=== PATIENT | female | born 1965 | race Caucasian/White ===

== ENCOUNTER 2017-02-19 16:59 | Emergency (ER) | payer OTHER ==
--- NOTE | 2017-02-19 19:56 | DIAGNOSTIC IMAGING REPORT ---
PROCEDURE: CT ABD/PELVIS WITH CONTRAST INDICATION: Abdominal pain at incision site. When based post ventral abdominal hernia repair. TECHNIQUE: 110 ml of Isovue 300 were injected intravenously and axial images were obtained of the entire abdomen and pelvis with sagittal and coronal reformations. COMPARISON: None. FINDINGS: ABDOMEN: There are postoperative changes and soft tissue edema of the upper periumbilical abdominal wall . There are surgical mesh in the intra-abdominal at the surgical site. There is no evidence of fluid collection or abscess. Cholecystectomy (surgical clips). Liver, spleen, pancreas, kidneys, and aorta are normal. There is moderate stool throughout the colon. Small bowel pattern and appendix are normal. PELVIS: There is a small amount of free fluid in the pelvis (most likely postoperative fluid). Uterus and adnexal structures are normal. IMPRESSION: 1. Postoperative changes of the ventral abdominal wall consistent with hernia repair. No evidence of fluid collection or abscess. 2. Status post cholecystectomy. 3. Moderate stool throughout the colon. Consider obstipation. 4. Small amount of free fluid in the pelvis (most likely postoperative fluid). 5. Findings discussed with GET [place]. All CT scans at this facility use dose modulation, iterative reconstruction, and/or weight-based dosing when appropriate to reduce radiation dose to as low as reasonably achievable.
--- NOTE | 2017-02-19 20:56 | ED NURSING NOTES ---
Clinical Report - Nurses [place] [address] [place] [address] 02/19/2017 16:59 Patient: SEVEN PISANO TRIAGE Triage time 17:47 Feb 19 2017. Acuity: LEVEL 4. Chief Complaint: ABDOMINAL PAIN. 17:51 02/19/17. Alert. No acute distress. ( Pain is constant). SEPSIS SCREEN: Sepsis Screen. Negative (no infection suspected/documented). LYNN COMA SCORE: [place] Coma Scale: 15- eyes open spontaneously (4); best verbal response- oriented x 4 (5); best motor response- obeys commands (6). --17:51 Theresa Murphy 17:51 02/19/17. BP: 106/69. HR: 65. RR: 17. O2 saturation: 98%. Temp: 98.2 F. Pain level now 8/10. --17:51 Theresa Murphy. Weight: 58 kg stated. Height/Length: 63 inches Per Patient. BMI: 22.7. --17:48 Theresa Murphy. Medications Paxil Oral 50 mg, daily. --17:49 Theresa Murphy TraZODone HCl Oral (Tablet 150 mg), at bedtime. --17:49 Theresa Murphy OxyCODONE HCl Oral 10 mg, 6xdaily (They rx'd 1 at a time, pt states she has been taking 2). --17:50 Theresa Murphy Tylenol Oral, PRN. --17:50 Theresa Murphy. Medication/allergy information source: the patient. --17:51 Theresa Murphy. Allergies No Known Drug Allergy. --17:50 Theresa Murphy. History Arrived by private vehicle. Historian: patient. Accompanied by spouse. Primary physician (Herbert. Regan at [facility] was surgeon). This started yesterday. ( Pt reports that she had a hernia repair yesterday morning. She was given tylenol and oxycodone for pain, however she can't sleep or get control of the pain.). She has had constipation and abdominal pain. No nausea, vomiting, diarrhea or fever. PAST MEDICAL HX: Immunizations: up-to-date. Last normal menstrual period now. SOCIAL HX: Never smoker. No alcohol use or drug use. FALL RISK ASSESSMENT: Fall risk assessment completed. No fall risk identified. NUTRITIONAL RISK ASSESSMENT: The nutritional risk assessment revealed no deficiencies. FUNCTIONAL ASSESSMENT: Functional assessment: no impairments noted. LEARNING NEEDS ASSESSMENT: The learning needs assessment revealed no barriers. SKIN INTEGRITY ASSESSMENT: Skin integrity risk assessment completed. No skin integrity risk identified. --17:51 Theresa Murphy. PROBLEMS: Prior Injury, Same Area. Sprain. Right shoulder pain. Abdominal Pain. Depression. --17:50 Theresa Murphy. ADDITIONAL SURGERIES: . Gallbladder Surgery. Hernia Repair. --17:50 Theresa Murphy. Assessment The patient states feels the same. --17:51 Theresa Murphy. Interventions ID band on patient. --17:51 Theresa Murphy. PHYSICAL ASSESSMENT 17:51 02/19/17. Ambulatory to room. Patient gowned. GENERAL / NEURO / PSYCH: Alert. Oriented X 4. Appears in pain. HEENT: Mucous membranes are pink. RESPIRATORY: Respirations not labored. CVS: Capillary refill less than 2 seconds. GI / : Abdominal tenderness in the periumbilical area. Guarding present. SKIN: Skin is warm and dry. --17:51 Theresa Murphy. NURSING PROGRESS NOTES 17:51 02/19/17. The plan of care for this patient has been created. Patient gowned. Head of bed elevated. Reassurance given. Two patient identifiers checked. Call light placed in reach. Side rails up x 1. Bed placed in lowest position. Brakes of bed on. Patient ready for evaluation- chart flagged and ED physician and SOCIAL SECURITY SPECIALIST notified. --17:51 Theresa Murphy 17:52 02/19/17. ( [place] provided to pt.). --17:52 Theresa Murphy 18:45 02/19/2017 Site #1 started via IV in the right antecubital space with an 20g angiocath, with aseptic technique and good blood return; one attempt. Blood drawn: rainbow set. Labeled in the presence of the patient and sent to the lab. Saline lock flushed with 10 mL saline. --18:45 Theresa Murphy 19:00 02/19/2017 Started bag #1 1000 mL IV Fluids IV NS (Saline); at 1000 mL/hr over 1 hour(s) via site #1 via IV pump. Allergies verified and confirmed 5 rights. IV patency established. IV site checked: no pain, redness, or swelling. IV flushed thoroughly pre- and post-medication administration. --19:03 Theresa Murphy 19:02/19/2017 Toradol IVP 30 mg given over 1 minute(s) via site #1. Allergies verified and confirmed 5 rights. IV patency established. IV site checked: no pain, redness, or swelling. IV flushed thoroughly pre- and post-medication administration. IVP given by RN. --19:03 Theresa Murphy 19:04 02/19/17. BP: 113/69. HR: 52. RR: 15. O2 saturation: 99% on room air. Pain level now: 03/11. --19:04 Theresa Murphy 21:02/19/2017 IV Saline Lock Drip IV Discontinued: discontinued upon discharge. Total amount infused: 10 mL. IV patency established. IV site checked: no pain, redness, or swelling. IV flushed thoroughly. --21:06 Ryan Lion R.N. 21:02 02/19/2017 IV Fluids IV NS Discontinued: bag #1 infused upon discharge. Total amount infused: 1000 mL. IV patency established. IV site checked: no pain, redness, or swelling. IV flushed thoroughly. --21:07 Ryan Lion R.N. 21:06 02/19/2017 Site #1 removed upon discharge. Manual pressure applied. --21:06 Ryan Lion R.N. DISPOSITION / DISCHARGE Condition at departure: improved. No learning barriers present. Discharge instructions provided and reviewed with the patient. Reviewed referral to a primary care physician for followup. Patient verbalized understanding. Written instructions provided in Kazakh. The patient was discharged home and accompanied by spouse. She left the Emergency Department ambulatory and via private vehicle. Spouse driving. --21:05 Ryan Lion R.N. 21:05 02/19/17. BP: 110/69. HR: 78. RR: 16. O2 saturation: 100%. Temp: 98.3 F. --21:05 Ryan Lion R.N. Departure time: 21:07. --21:08 Ryan Lion R.N. Locked/Released at 02/19/2017 21:10 by Ryan Lion R.N.
--- NOTE | 2017-02-19 20:56 | ED ORDER SUMMARY ---
..... Patient: SEVEN PISANO OrderSheet [facility] VisitID: [id number] [place] [address] 51y, F Registration Date/Time: 02/19/2017 ORDER SHEET Weight: 58.0 kg (stated) Allergies: No Known Drug Allergy GENERAL ORDERS: CT Abd/Pel w Cont (No) (pending) (post op hernia repair yesterday) Urgent (18:35 02/19/2017 HBivens A.R.N.P.) (Ack 18:36 PWeiler ER Tech1) (Cancelled: CT [id number] CHagerty ER Environmental Services Supervisor) CBC w Diff Urgent (18:35 02/19/2017 HBivens A.R.N.P.) (Ack 18:36 PWeiler ER Tech1) (18:45 ASchmuck) CMP Urgent (18:35 02/19/2017 HBivens A.R.N.P.) (Ack 18:36 PWeiler ER Tech1) (18:45 ASchmuck) Amylase Urgent (18:35 02/19/2017 HBivens A.R.N.P.) (Ack 18:36 PWeiler ER Tech1) (18:45 ASchmuck) Lipase Urgent (18:35 02/19/2017 HBivens A.R.N.P.) (Ack 18:36 PWeiler ER Tech1) (18:45 ASchmuck) CT Abd/Pel w Cont (No) (N/A) Urgent (19:23 02/19/2017 CHagerty ER Environmental Services Supervisor written order HBivens A.R.N.P.) (Ack 19:24 CHagerty ER Environmental Services Supervisor) (19:41 [place]) MEDICATION ORDERS: IV FLUIDS: IV NS : initial bolus 1000 mL (1000 mL/hr), then none - (NOW) (18:35 02/19/2017 HBivens A.R.N.P.) (Ack 18:53 ASchmuck) (19:03 ASchmuck) Toradol IV 30 mg (NOW) (18:35 02/19/2017 HBivens A.R.N.P.) (Ack 18:53 ASchmuck) (19:03 ASchmuck) IV Saline Lock (18:35 02/19/2017 Doug A.R.N.P.) (18:45 ASchmuck) ORDER SHEET NOTES: [Electronically signed by Ryan Lion R.N. (21:10 02/19/2017)] [Electronically signed by Carolin SnowR.N.PAlbino (22:26 02/19/2017)] [Electronically locked/signed by Ryan Lion R.N. (21:10 02/19/2017)]
--- NOTE | 2017-02-19 20:56 | ED NURSING NOTES ---
Clinical Report - Nurses [place] [address] [place] [address] 02/19/2017 16:59 Patient: SEVEN PISANO TRIAGE Triage time 17:47 Feb 19 2017. Acuity: LEVEL 4. Chief Complaint: ABDOMINAL PAIN. 17:51 02/19/17. Alert. No acute distress. ( Pain is constant). SEPSIS SCREEN: Sepsis Screen. Negative (no infection suspected/documented). LYNN COMA SCORE: [place] Coma Scale: 15- eyes open spontaneously (4); best verbal response- oriented x 4 (5); best motor response- obeys commands (6). --17:51 Theresa Murphy 17:51 02/19/17. BP: 106/69. HR: 65. RR: 17. O2 saturation: 98%. Temp: 98.2 F. Pain level now 8/10. --17:51 Theresa Murphy. Weight: 58 kg stated. Height/Length: 63 inches Per Patient. BMI: 22.7. --17:48 Theresa Murphy. Medications Paxil Oral 50 mg, daily. --17:49 Theresa Murphy TraZODone HCl Oral (Tablet 150 mg), at bedtime. --17:49 Theresa Murphy OxyCODONE HCl Oral 10 mg, 6xdaily (They rx'd 1 at a time, pt states she has been taking 2). --17:50 Theresa Murphy Tylenol Oral, PRN. --17:50 Theresa Murphy. Medication/allergy information source: the patient. --17:51 Theresa Murphy. Allergies No Known Drug Allergy. --17:50 Theresa Murphy. History Arrived by private vehicle. Historian: patient. Accompanied by spouse. Primary physician (Herbert. Regan at [facility] was surgeon). This started yesterday. ( Pt reports that she had a hernia repair yesterday morning. She was given tylenol and oxycodone for pain, however she can't sleep or get control of the pain.). She has had constipation and abdominal pain. No nausea, vomiting, diarrhea or fever. PAST MEDICAL HX: Immunizations: up-to-date. Last normal menstrual period now. SOCIAL HX: Never smoker. No alcohol use or drug use. FALL RISK ASSESSMENT: Fall risk assessment completed. No fall risk identified. NUTRITIONAL RISK ASSESSMENT: The nutritional risk assessment revealed no deficiencies. FUNCTIONAL ASSESSMENT: Functional assessment: no impairments noted. LEARNING NEEDS ASSESSMENT: The learning needs assessment revealed no barriers. SKIN INTEGRITY ASSESSMENT: Skin integrity risk assessment completed. No skin integrity risk identified. --17:51 Theresa Murphy. PROBLEMS: Prior Injury, Same Area. Sprain. Right shoulder pain. Abdominal Pain. Depression. --17:50 Theresa Murphy. ADDITIONAL SURGERIES: . Gallbladder Surgery. Hernia Repair. --17:50 Theresa Murphy. Assessment The patient states feels the same. --17:51 Theresa Murphy. Interventions ID band on patient. --17:51 Theresa Murphy. PHYSICAL ASSESSMENT 17:51 02/19/17. Ambulatory to room. Patient gowned. GENERAL / NEURO / PSYCH: Alert. Oriented X 4. Appears in pain. HEENT: Mucous membranes are pink. RESPIRATORY: Respirations not labored. CVS: Capillary refill less than 2 seconds. GI / : Abdominal tenderness in the periumbilical area. Guarding present. SKIN: Skin is warm and dry. --17:51 Theresa Murphy. NURSING PROGRESS NOTES 17:51 02/19/17. The plan of care for this patient has been created. Patient gowned. Head of bed elevated. Reassurance given. Two patient identifiers checked. Call light placed in reach. Side rails up x 1. Bed placed in lowest position. Brakes of bed on. Patient ready for evaluation- chart flagged and ED physician and HEAD OF ETHICS AND COMPLIANCE notified. --17:51 Theresa Murphy 17:52 02/19/17. ( [place] provided to pt.). --17:52 Theresa Murphy 18:45 02/19/2017 Site #1 started via IV in the right antecubital space with an 20g angiocath, with aseptic technique and good blood return; one attempt. Blood drawn: rainbow set. Labeled in the presence of the patient and sent to the lab. Saline lock flushed with 10 mL saline. --18:45 Theresa Murphy 19:00 02/19/2017 Started bag #1 1000 mL IV Fluids IV NS (Saline); at 1000 mL/hr over 1 hour(s) via site #1 via IV pump. Allergies verified and confirmed 5 rights. IV patency established. IV site checked: no pain, redness, or swelling. IV flushed thoroughly pre- and post-medication administration. --19:03 Theresa Murphy 19:02/19/2017 Toradol IVP 30 mg given over 1 minute(s) via site #1. Allergies verified and confirmed 5 rights. IV patency established. IV site checked: no pain, redness, or swelling. IV flushed thoroughly pre- and post-medication administration. IVP given by RN. --19:03 Theresa Murphy 19:04 02/19/17. BP: 113/69. HR: 52. RR: 15. O2 saturation: 99% on room air. Pain level now: 03/11. --19:04 Theresa Murphy 21:02/19/2017 IV Saline Lock Drip IV Discontinued: discontinued upon discharge. Total amount infused: 10 mL. IV patency established. IV site checked: no pain, redness, or swelling. IV flushed thoroughly. --21:06 Ryan Lion R.N. 21:02 02/19/2017 IV Fluids IV NS Discontinued: bag #1 infused upon discharge. Total amount infused: 1000 mL. IV patency established. IV site checked: no pain, redness, or swelling. IV flushed thoroughly. --21:07 Ryan Lion R.N. 21:06 02/19/2017 Site #1 removed upon discharge. Manual pressure applied. --21:06 Ryan Lion R.N. DISPOSITION / DISCHARGE Condition at departure: improved. No learning barriers present. Discharge instructions provided and reviewed with the patient. Reviewed referral to a primary care physician for followup. Patient verbalized understanding. Written instructions provided in [place]. The patient was discharged home and accompanied by spouse. She left the Emergency Department ambulatory and via private vehicle. Spouse driving. --21:05 Ryan Lion R.N. 21:05 02/19/17. BP: 110/69. HR: 78. RR: 16. O2 saturation: 100%. Temp: 98.3 F. --21:05 Ryan Lion R.N. Departure time: 21:07. --21:08 Ryan Lion R.N. Locked/Released at 02/19/2017 21:10 by Ryan Lion R.N.
--- NOTE | 2017-02-19 20:56 | ED CLINICAL REPORT ---
Clinical Report - Physicians/Mid Levels [facility] [address] [place] [address] 02/19/2017 16:59 Patient: SEVEN PISANO Time Seen: 1825; initial patient contact, initial documentation, patient care assumed. Arrived- By private vehicle. Historian- patient. HISTORY OF PRESENT ILLNESS Chief Complaint: ABDOMINAL PAIN. At its maximum, severity described as severe. When seen in the E.D., severity described as severe. Modifying factors- worsened by movement and deep breaths. Not relieved by anything. It is described as "pain". No radiation. It is described as located in the upper abdomen. This started yesterday and is still present. No nausea, loss of appetite, vomiting or diarrhea. No additional abdominal pain. No recent travel. Similar symptoms previously: None. Recent medical care: The patient was seen recently and hospitalized. ( had hernia surgery yesterday at [facility], pain meds are not helping). REVIEW OF SYSTEMS No constipation, black stools, hematemesis, difficulty with urination or pain with urination. No urinary frequency, abnormal bleeding, bloody stools, fever or chest pain. No difficulty breathing. All systems otherwise negative, except as recorded above. PAST HISTORY See nurses notes. PROBLEMS: Prior Injury, Same Area. Sprain. Right shoulder pain. Abdominal Pain. Depression. --17:50 Theresa Murphy. ADDITIONAL SURGERIES: . Gallbladder Surgery. Hernia Repair. --17:50 Theresa Murphy. SOCIAL HISTORY Never smoker. No alcohol use or drug use. No recent travel. Is a local resident. FAMILY HISTORY Negative. ADDITIONAL NOTES The nursing notes have been reviewed with agreement regarding the chief complaint, HPI, ROS, PMH and patient medications and allergies. PHYSICAL EXAM Vital Signs: 02/19/2017 17:51 BP: 106/69. HR: 65. RR: 17. O2 saturation: 98%. Temp: 98.2 F. Have been reviewed as normal and appear to be correct. Appearance: Alert. Oriented X3. No acute distress. Eyes: Pupils equal, round and reactive to light. Eyes normal inspection. Neck: Normal inspection. Neck supple. CVS: Normal heart rate and rhythm. Heart sounds normal. Pulses normal. Respiratory: No respiratory distress. Breath sounds normal. Chest nontender. Abdomen: Soft. Moderate tenderness in the periumbilical area (bandage removed, surgical site clear, mild bruising, steri strips and sutures intact and wound edges approximating well, no swelling, no dc, no erythema, no warmth). No guarding, rebound tenderness or Lei's, obturator or psoas sign present. Bowel sounds normal. No organomegaly. No mass. Tenderness present. Back: Normal inspection. Skin: Skin warm and dry. Normal skin color. No rash. Normal skin turgor. Extremities: Extremities exhibit normal ROM. No lower extremity edema. Neuro: Oriented X 3. No motor deficit. No sensory deficit. LABS, X-RAYS, AND EKG Abdominal CT: . The study was interpreted by the radiologist and discussed with the radiologist. Interpretation time: 19:53. Laboratory Tests: CBC w Diff: (BONNIE: 02/19/2017 18:43) ( [facility] 02/19/2017 18:52) Final results Test Result Flag Units (Reference) WHITE BLOOD COUNT 6.2 K/uL (4.5-11.5) RED BLOOD COUNT 3.64 L M/uL (4.00-5.20) HEMOGLOBIN 10.9 L gm/dL (12.0-16.0) HEMATOCRIT 32.3 L % (36.0-46.0) MEAN CELL VOLUME 89 fL (80-100) MEAN CORPUSCULAR HGB 30 pg (26-34) MEAN CORPUSCULAR HGB CONC 34 g/dL (31-37) RED CELL DISTRIBUTION WIDTH 13.0 % (11.6-14.8) PLATELET COUNT 209 K/uL (150-400) NEUTROPHIL % 56.2 % (50-75) LYMPH % 31.3 % (25-40) MONO % 8.0 % (3-14) EOSINOPHIL % 3.9 % (0-4) BASOPHIL % 0.6 % (0-2) CMP: (BONNIE: 02/19/2017 18:43) ( [facility] 02/19[facility] 19:05) Final results Test Result Flag Units (Reference) GLUCOSE 99 mg/dL (70-110) BUN 7 mg/dL (7-18) CREATININE 0.9 mg/dL (0.6-1.3) Estimated GFR >60 mL/min Estimated GFR- >60 mL/min Note: Persistent reduction over 3 months in eGFR<60 mL/min/1.73 m2 defines CKD. Patients with eGFR values>=60 mL/min/1.73 m2 may also have CKD if evidence ofpersistent proteinuria. Additional information may be foundat www.kidney.org. SODIUM 141 mmol/L (136-145) POTASSIUM 3.7 mmol/L (3.5-5.1) CHLORIDE 106 mmol/L (98-107) CARBON DIOXIDE 33 H mmol/L (21-32) CALCIUM 8.7 mg/dL (8.5-10.1) TOTAL PROTEIN 6.4 g/dL (6.4-8.2) ALBUMIN 3.3 g/dL (3.3-5.0) BILIRUBIN, TOTAL 0.2 mg/dL (0.0-1.0) ALKALINE PHOSPHATASE 72 U/L (46-116) AST (SGOT) 23 U/L (15-37) ALT (SGPT) 24 U/L (12-78) LIPASE 207 U/L (73-393) AMYLASE 24 L U/L (25-115) . PROGRESS AND PROCEDURES Patient and spouse counseled in person regarding the patient's stable condition, test results and diagnosis. Differential Diagnosis: I considered gastritis, gastroenteritis, peptic ulcer disease, gastroesophageal reflux disease, mesenteric lymphadenitis, adhesions, bowel perforation, biliary colic, cholecystitis, hepatitis, pancreatitis, common bile duct obstruction, splenic injury, splenic rupture, intraabdominal abscess, ascites, spontaneous bacterial peritonitis, hernia, perforated viscus and viral syndrome as a possible cause of abdominal pain in this patient. This is a partial list of diagnoses considered. Above considerations are based on history, physical exam, reassessment, laboratory data and other information. Differential diagnosis was discussed with patient and patient's spouse. Disposition: Discharged home in good and improved condition (20:56). Condition: good and stable. CLINICAL IMPRESSION Acute periumbilical abdominal pain. INSTRUCTIONS Warnings: GENERAL WARNINGS: Return or contact your physician immediately if your condition worsens or changes unexpectedly, if not improving as expected, or if other problems arise. SPECIFICALLY, return if you develop pain in the abdomen or pelvis, fever, the inability to keep fluids down, blood in vomitus, blood in diarrhea, fainting or lightheadedness. Follow-up: Follow up with your doctor as scheduled even if well. Summary of care provided to patient. Understanding of the discharge instructions verbalized by patient. (Electronically signed by Carolin Snow A.R.N.P. 02/19/2017 22:26)
--- NOTE | 2017-02-19 20:56 | ED ORDER SUMMARY ---
..... Patient: SEVEN PISANO OrderSheet [facility] VisitID: [id number] [place] [address] 51y, F Registration Date/Time: 02/19/2017 ORDER SHEET Weight: 58.0 kg (stated) Allergies: No Known Drug Allergy GENERAL ORDERS: CT Abd/Pel w Cont (No) (pending) (post op hernia repair yesterday) Urgent (18:35 02/19/2017 HBivens A.R.N.P.) (Ack 18:36 PWeiler ER Tech1) (Cancelled: CT [id number] CHagerty ER Vocational Rehab Consultant) CBC w Diff Urgent (18:35 02/19/2017 HBivens A.R.N.P.) (Ack 18:36 PWeiler ER Tech1) (18:45 ASchmuck) CMP Urgent (18:35 02/19/2017 HBivens A.R.N.P.) (Ack 18:36 PWeiler ER Tech1) (18:45 ASchmuck) Amylase Urgent (18:35 02/19/2017 HBivens A.R.N.P.) (Ack 18:36 PWeiler ER Tech1) (18:45 ASchmuck) Lipase Urgent (18:35 02/19/2017 HBivens A.R.N.P.) (Ack 18:36 PWeiler ER Tech1) (18:45 ASchmuck) CT Abd/Pel w Cont (No) (N/A) Urgent (19:23 02/19/2017 CHagerty ER Vocational Rehab Consultant written order HBivens A.R.N.P.) (Ack 19:24 CHagerty ER Vocational Rehab Consultant) (19:41 [place]) MEDICATION ORDERS: IV FLUIDS: IV NS : initial bolus 1000 mL (1000 mL/hr), then none - (NOW) (18:35 02/19/2017 HBivens A.R.N.P.) (Ack 18:53 ASchmuck) (19:03 ASchmuck) Toradol IV 30 mg (NOW) (18:35 02/19/2017 HBivens A.R.N.P.) (Ack 18:53 ASchmuck) (19:03 ASchmuck) IV Saline Lock (18:35 02/19/2017 Doug A.R.N.P.) (18:45 ASchmuck) ORDER SHEET NOTES: [Electronically signed by Ryan Lion R.N. (21:10 02/19/2017)] [Electronically signed by Carolin SnowR.N.PAlbino (22:26 02/19/2017)] [Electronically locked/signed by Ryan Lion R.N. (21:10 02/19/2017)]
--- NOTE | 2017-02-19 22:26 | ED DISCHARGE INSTRUCTIONS ---
Patient: SEVEN PISANO General Instructions [facility] VisitID: [id number] [place] [address] 51y, F Registration Date/Time: 02/19/2017 Acute periumbilical abdominal pain. INSTRUCTIONS Warnings: GENERAL WARNINGS: Return or contact your physician immediately if your condition worsens or changes unexpectedly, if not improving as expected, or if other problems arise. SPECIFICALLY, return if you develop pain in the abdomen or pelvis, fever, the inability to keep fluids down, blood in vomitus, blood in diarrhea, fainting or lightheadedness. Follow-up: Follow up with your doctor as scheduled even if well. Summary of care provided to patient. Understanding of the discharge instructions verbalized by patient. ADDITIONAL INFORMATION Abdominal Pain, Unknown Cause (Female) The exact cause of your abdominal (stomach) pain is not certain. This does not mean that this is something to worry about, or the right tests were not done. Everyone likes to know the exact cause of the problem, but sometimes with abdominal pain, there is no clear-cut cause, and this could be a good thing. The good news is that your symptoms can be treated, and you will feel better. Your condition does not seem serious now; however, sometimes the signs of a serious problem may take more time to appear. For this reason,it is important for you to watch for any new symptoms, problems,or worsening of your condition. Over the next few days, the abdominal pain may come and go, or be continuous. Other common symptoms can include nausea and vomiting. Sometimes it can be difficult to tell if you feel nauseous, you may just feel bad and not associate that feeling with nausea. Constipation, diarrhea, and a fever may go along with the pain. The pain may continue even if treated correctly over the following days. Depending on how things go, sometimes the cause can become clear and may require further or different treatment. Additional evaluations, medications, or tests may be needed. Home care Your health care provider may prescribe medications for pain, symptoms, or an infection. Follow the health care provider's instructions for taking these medications. General care Rest until your next exam. No strenuous activities. Try to find positions that ease discomfort. A small pillow placed on the abdomen may help relieve pain. Something warm on your abdomen (such as a heating pad) may help, but be careful not to burn yourself. Diet Do not force yourself to eat, especially if having cramps, vomiting, or diarrhea. Water is important so you do not get dehydrated. Soup may also be good. Sports drinks may also help, especially if they are not too acidic. Make sure you don't drink sugary drinks as this can make things worse. Take liquids in small amounts. Do not guzzle them. Caffeine sometimes makes the pain and cramping worse. Avoid dairy products if you have vomiting or diarrhea. Don't eat large amounts at a time. Wait a few minutes between bites. Eat a diet low in fiber (called a low-residue diet). Foods allowed include refined breads, white rice, fruit and vegetable juices without pulp, tender meats. These foods will pass more easily through the intestine. Avoid whole-grain foods, whole fruits and vegetables, meats, seeds and nuts, fried or fatty foods, dairy, alcohol and spicy foods until your symptoms go away. Follow-up care Follow up with your health care provider as instructed, or if your pain does not begin to improve in the next 24 hours. When to seek medical care Seek prompt medical care if any of the following occur: Pain gets worse or moves to the right lower abdomen New or worsening vomiting or diarrhea Swelling of the abdomen Unable to pass stool for more than three days Fever of 100.4F (38C) or higher, or as directed by your healthcare provider. Blood in vomit or bowel movements (dark red or black color) Jaundice (yellow color of eyes and skin) Weakness, dizziness Chest, arm, back, neck or jaw pain Unexpected vaginal bleeding or missed period Call 911 Call emergency services if any of the following occur: Trouble breathing Confusion Fainting or loss of consciousness Rapid heart rate Seizure You have been given the following additional information: Abdominal Pain, Unknown Cause, (Female) (Electronically signed by Carolin Snow A.R.N.P. 02/19/2017 22:26)
--- NOTE | 2017-02-19 22:26 | ED MAR SUMMARY ---
..... Medication Administration Record [facility] [address] [place] [address] Patient: SEVEN PISANO Visit ID: [id number] 51y, F Weight: 58.0 kg Height/Length: 63 in BMI: 22.7 ALLERGIES: No Known Drug Allergy Start 19:00 02/19/2017 Theresa Murphy,, Stop 21:02 02/19/2017 Ryan Lion RAlbinoN. Medication Administered: IV NS (SALINE), Dose: IV Fluids over 1 hour(s), Rate: 1000 mL/hr, Dispensed: 1000 mL bag, Site: #1 right AC. Medication Ordered: IV NS : initial bolus 1000 mL (1000 mL/hr), then none - (NOW). Given 19:01 02/19/2017 Theresa Murphy, Medication Administered: TORADOL [IVP], Dose: 30 mg IVP over 1 minute(s), Site: #1 right AC. Medication Ordered: Toradol IV 30 mg (NOW).
--- NOTE | 2017-02-19 22:26 | ED MAR SUMMARY ---
..... Medication Administration Record [facility] [address] [place] [address] Patient: SEVEN PISANO Visit ID: [id number] 51y, F Weight: 58.0 kg Height/Length: 63 in BMI: 22.7 ALLERGIES: No Known Drug Allergy Start 19:00 02/19/2017 Theresa Murphy,, Stop 21:02 02/19/2017 Ryan Lion RAlbinoN. Medication Administered: IV NS (SALINE), Dose: IV Fluids over 1 hour(s), Rate: 1000 mL/hr, Dispensed: 1000 mL bag, Site: #1 right AC. Medication Ordered: IV NS : initial bolus 1000 mL (1000 mL/hr), then none - (NOW). Given 19:01 02/19/2017 Theresa Murphy, Medication Administered: TORADOL [IVP], Dose: 30 mg IVP over 1 minute(s), Site: #1 right AC. Medication Ordered: Toradol IV 30 mg (NOW).
--- NOTE | 2017-02-19 22:26 | ED MED RECONCILIATION SUMMARY ---
Patient: SEVEN PISANO Medication Reconciliation Report [facility] VisitID: [id number] [address] [place] [address] 51y, F Registration Date/Time: 02/19/2017 Weight: 58.0 kg Height/Length: 63 in. BMI: 22.7 ALLERGIES: No Known Drug Allergy The patient's Home Medications are listed below: THE FOLLOWING MEDICATIONS NEED TO BE RECONCILED: OxyCODONE HCl Oral 10 mg, 6xdaily, They rx'd 1 at a time, pt states she has been taking 2 Paxil Oral 50 mg, daily TraZODone HCl Oral (150 mg), at bedtime Tylenol Oral, PRN The source(s) of the original Home Medication information: patient The following Medications were given to the patient in the Emergency Department: IV NS IV Fluids bolus 0, then 1000 mL/hr, administered: 02/19/2017 7:00:00 PM Toradol [IVP] IVP 30 mg, administered: 02/19/2017 7:01:00 PM The following Medications were prescribed to the patient: None.
--- NOTE | 2017-02-19 22:26 | ED MED RECONCILIATION SUMMARY ---
Patient: SEVEN PISANO Medication Reconciliation Report [facility] VisitID: [id number] [address] [place] [address] 51y, F Registration Date/Time: 02/19/2017 Weight: 58.0 kg Height/Length: 63 in. BMI: 22.7 ALLERGIES: No Known Drug Allergy The patient's Home Medications are listed below: THE FOLLOWING MEDICATIONS NEED TO BE RECONCILED: OxyCODONE HCl Oral 10 mg, 6xdaily, They rx'd 1 at a time, pt states she has been taking 2 Paxil Oral 50 mg, daily TraZODone HCl Oral (150 mg), at bedtime Tylenol Oral, PRN The source(s) of the original Home Medication information: patient The following Medications were given to the patient in the Emergency Department: IV NS IV Fluids bolus 0, then 1000 mL/hr, administered: 02/19/2017 7:00:00 PM Toradol [IVP] IVP 30 mg, administered: 02/19/2017 7:01:00 PM The following Medications were prescribed to the patient: None.
== END 2017-02-19 21:10 | disposition home or self-care (01) ==
LOC: ED SRH 16:59
DX: R10.33 Periumbilical pain (principal); Z79.899 Other long term (current) drug therapy
CPT/HCPCS: 90100; 92235; 92530; 95059